=== PATIENT | female | born 2000 | race Two or more races ===

== ENCOUNTER 2023-03-12 18:13 | Emergency (ER) | payer OTHER ==
[~2023-03-12] VITALS: Ht 160 cm; Wt 117.9 kg
== END 2023-03-12 22:13 | disposition home or self-care (01) ==
LOC: ER 18:14
DX: M25.571 Pain in right ankle and joints of right foot (principal)

== ENCOUNTER 2023-03-17 16:26 | Outpatient (CLI) | payer OTHER | END 2023-03-17 16:30 | disposition home or self-care (01) | LOC: RAD 16:26 | DX: M25.562 Pain in left knee (principal) ==